=== PATIENT | female | born 1955 | race Caucasian/White ===

== ENCOUNTER 2018-06-01 09:45 | Emergency (ER) | payer BC ==
[2018-06-01] MEDS ORDERED: NA CHLORIDE 0.9% 1,000 ML ONE (10:30)
[2018-06-01] MEDS ORDERED: CEFTRIAXONE/SWI 1gm 1 GM/10 ML SYR ONE (10:30)
[2018-06-01] MEDS ORDERED: SMZ./TMP. 800/160 MG TABLET ONE (10:34)
[2018-06-01 10:50] LABS: Absolute Lymphocytes (CBC) 0.9 K/uL (0.7-4.9); Absolute Monocytes 0.4 K/uL (0.1-1.3); Absolute Neutrophil 6.7 K/uL (1.8-8.0); Basophils % 0.2 % (0-1.3); Eosinophils % 1.3 % (0-4.4); Hematocrit 40.5 % (36.0-45.0); Lymphocytes % 11.2 % (15.3-44.8); MCH 29.2 pg (27.0-35.0); MCV 85.6 fL (80-100); MPV 7.9 fL (7.6-11.3); RBC Red Blood Cell Count 4.73 M/uL (3.86-4.86)
--- NOTE | 2018-06-01 10:53 | RAD REPORT ---
EXAM DESCRIPTION: CT - Stone Protocol - 06/01/2018 10:34 am CLINICAL HISTORY: Abdominal pain. Dysuria/hematuria COMPARISON: None. TECHNIQUE: Computed axial tomography of the abdomen pelvis was obtained without oral or IV contrast. Lack of IV and oral contrast limits evaluation of solid organs, bowel, and vessels. Coronal reformat caleb images were obtained and reviewed. All CT scans are performed using dose optimization technique as appropriate and may include automated exposure control or mA/KV adjustment according to patient size. FINDINGS: Extrarenal pelves. A renal calculus is not seen. An ureteral calculus is not noted. A blad rae calculus is not present. The liver, spleen, pancreas and adrenals appear grossly normal There is no evidence of diverticulitis. The appendix appears normal An adnexal mass is not seen A small umbilical hernia IMPRESSION: Negative for a genitourinary calculus
[2018-06-01 11:35] LABS: Bilirubin Total 0.5 mg/dL (0.2-1.0); Protein, Total 7.1 g/dL (6.4-8.2)
--- NOTE | 2018-06-01 11:36 | EDPHYS ---
Physician Documentation [facility] Name: Sindhu Gaming Age: 62 yrs Sex: Female : 1955 Arrival Date: 06/01/2018 Time: 09:52 Bed 5 Private MD: Jerrod Ny ED Physician Flex Elizabeth HPI: 06/01 10:05 This 62 yrs old Female presents to ER via Unassigned with complaints of day Vaginal Bleeding. 10:05 The patient presents with urinary symptoms, dysuria, frequency, hematuria, hesitancy, day urgency. Onset: The symptoms/episode began/occurred this morning, today. Modifying factors: The symptoms are alleviated by nothing, the symptoms are aggravated by nothing. Associated signs and symptoms: The patient has no apparent associated signs or symptoms. Severity of symptoms: At their worst the symptoms were mild, in the emergency department the symptoms are unchanged. The patient is sexually active. The patient has not experienced similar symptoms in the past. Historical: - Allergies: 10:08 Codeine; sv 10:08 Levaquin; sv - Home Meds: 10:08 calcium [Active]; D3 [Active]; aspirin 81 mg Oral TbEC [Active]; Claritin Oral sv [Active]; valcyclovir [Active]; hydroxycloraquine [Active]; Magnesium Oxide Oral [Active]; - PSHx: 10:08 glaucoma; sv - Immunization history:: Flu vaccine is up to date. - Social history:: Smoking status: Patient/guardian denies using tobacco, Patient uses alcohol, but reports only rare drinking. - Family history:: not pertinent. - Ebola Screening: : No symptoms or risks identified at this time. ROS: 10:05 Constitutional: Negative for fever, chills, and weight loss, Eyes: Negative for injury, day pain, redness, and discharge, ENT: Negative for injury, pain, and discharge, Neck: Negative for injury, pain, and swelling, Cardiovascular: Negative for chest pain, palpitations, and edema, Respiratory: Negative for shortness of breath, cough, wheezing, and pleuritic chest pain, Back: Negative for injury and pain, : Negative for injury, bleeding, discharge, and swelling, MS/Extremity: Negative for injury and deformity, Skin: Negative for injury, rash, and discoloration, Neuro: Negative for headache, weakness, numbness, tingling, and seizure, Psych: Negative for depression, anxiety, suicide ideation, homicidal ideation, and hallucinations, Allergy/Immunology: Negative for hives, rash, and allergies, Endocrine: Negative for neck swelling, polydipsia, polyuria, polyphagia, and marked weight changes, Hematologic/Lymphatic: Negative for swollen nodes, abnormal bleeding, and unusual bruising. 10:05 Abdomen/GI: Positive for abdominal pain, of the suprapubic area. Exam: 10:05 Constitutional: This is a well developed, well nourished patient who is awake, alert, day and in no acute distress. Head/Face: Normocephalic, atraumatic. Eyes: Pupils equal round and reactive to light, extra-ocular motions intact. Lids and lashes normal. Conjunctiva and sclera are non-icteric and not injected. Cornea within normal limits. Periorbital areas with no swelling, redness, or edema. ENT: Nares patent. No nasal discharge, no septal abnormalities noted. Tympanic membranes are normal and external auditory canals are clear. Oropharynx with no redness, swelling, or masses, exudates, or evidence of obstruction, uvula midline. Mucous membranes moist. Neck: Trachea midline, no thyromegaly or masses palpated, and no cervical lymphadenopathy. Supple, full range of motion without nuchal rigidity, or vertebral point tenderness. No Meningismus. Chest/axilla: Normal chest wall appearance and motion. Nontender with no deformity. No lesions are appreciated. Cardiovascular: Regular rate and rhythm with a normal S1 and S2. No gallops, murmurs, or rubs. Normal PMI, no JVD. No pulse deficits. Respiratory: Lungs have equal breath sounds bilaterally, clear to auscultation and percussion. No rales, rhonchi or wheezes noted. No increased work of breathing, no retractions or nasal flaring. Back: No spinal tenderness. No costovertebral tenderness. Full range of motion. Skin: Warm, dry with normal turgor. Normal color with no rashes, no lesions, and no evidence of cellulitis. MS/ Extremity: Pulses equal, no cyanosis. Neurovascular intact. Full, normal range of motion. Neuro: Awake and alert, GCS 15, oriented to person, place, time, and situation. Cranial nerves II-XII grossly intact. Motor strength 5/5 in all extremities. Sensory grossly intact. Cerebellar exam normal. Normal gait. Psych: Awake, alert, with orientation to person, place and time. Behavior, mood, and affect are within normal limits. 10:05 Respiratory: 10:05 Abdomen/GI: Inspection: abdomen appears normal, Bowel sounds: normal, Palpation: mild abdominal tenderness, in the suprapubic area. Vital Signs: 10:08 BP 155 / 96; Pulse 67; Resp 18; Temp 98.3; Pulse Ox 100% ; Weight 83.91 kg; Height 5 sv ft. 5 in. (165.10 cm); Pain 0/10; 12:45 BP 145 / 78; Pulse 76; Resp 19; Pulse Ox 99% on R/A; aj 10:08 Body Mass Index 30.79 (83.91 kg, 165.10 cm) sv MDM: 09:59 Patient medically screened. [facility] 10:08 Data reviewed: vital signs, nurses notes, lab test result(s). [facility] 06/01 10:05 Order name: Urine Culture [facility] 06/01 10:13 Order name: CBC with Diff; Complete Time: 11:32 [facility] 06/01 10:13 Order name: Comprehensive Metabolic Panel; Complete Time: 11:36 [facility] 06/01 10:13 Order name: CT Stone Protocol; Complete Time: 11:32 [facility] 06/01 10:27 Order name: Urine Dipstick--Ancillary (enter results); Complete Time: 12:00 06/01 10:05 Order name: Urine Dipstick-Ancillary (obtain specimen); Complete Time: 10:25 [facility] Administered Medications: 10:39 Drug: NS 0.9% 1000 ml Route: IV; Rate: 1 bolus; Site: right antecubital; sv 10:39 Drug: Rocephin - (cefTRIAXone) 1 grams Route: IVPB; Infused Over: 30 mins; Site: right sv antecubital; 10:56 Drug: Bactrim (160 mg-800 mg (DS) 1 tablet Route: PO; sv 12:43 Follow up: Response: No adverse reaction aj 12:15 Drug: Macrobid 100 mg Route: PO; aj 12:43 Follow up: Response: No adverse reaction aj 12:15 Drug: Pyridium 200 mg Route: PO; aj 12:44 Follow up: Response: No adverse reaction aj Disposition: 06/01/18 11:35 Discharged to Home. Impression: Urinary tract infection, site not specified, Hematuria, Cystitis. - Condition is Stable. - Discharge Instructions: Dysuria, Hematuria, Adult, Urinary Tract Infection, Adult, Urinary Tract Infection, Adult, [id number]. - Prescriptions for Macrobid 100 mg Oral Capsule - take 1 capsule by ORAL route every 12 hours for 5 days; 10 capsule. Bactrim DS 800- 160 mg Oral Tablet - take 1 tablet by ORAL route every 12 hours for 7 days; 14 tablet. Pyridium 200 mg Oral Tablet - take 1 tablet by ORAL route every 8 hours for 3 days; 9 tablet. - Work release form, Medication Reconciliation Form, Thank You Letter, Antibiotic Education, Prescription Opioid Use form. - Follow up: Jerrod Ny; When: 2 - 3 days; Reason: Recheck today's complaints, Continuance of care, Re-evaluation by your physician. Follow up: Edwardo Shine; When: 2 - 3 days; Reason: Recheck today's complaints, Re-evaluation by your physician. - Problem is new. - Symptoms have improved. Signatures: Dispatcher [employer] Brigitte Mccrary RN RN sv Myers, Amanda, RN RN aj Anderson, Corey, MD MD day Corrections: (The following items were deleted from the chart) 12:46 11:35 06/01/2018 11:35 Discharged to Home. Impression: Urinary tract infection, site aj not specified; Hematuria; Cystitis. Condition is Stable. Discharge Instructions: Dysuria, Hematuria, Adult, Urinary Tract Infection, Adult, Urinary Tract Infection, Adult, [id number]. Prescriptions for Macrobid 100 mg Oral Capsule - take 1 capsule by ORAL route every 12 hours for 5 days; 10 capsule, Bactrim DS 800-160 mg Oral Tablet - take 1 tablet by ORAL route every 12 hours for 7 days; 14 tablet. and Forms are Medication Reconciliation Form, Thank You Letter, Antibiotic Education, Prescription Opioid Use. Follow up: Jerrod Ny; When: 2 - 3 days; Reason: Recheck today's complaints, Continuance of care, Re-evaluation by your physician. Follow up: Edwardo Shine; When: 2 - 3 days; Reason: Recheck today's complaints, Re-evaluation by your physician. Problem is new. Symptoms have improved. day
--- NOTE | 2018-06-01 11:36 | ER ---
Nurse's Notes [facility] Name: Sindhu Gaming Age: 62 yrs Sex: Female : 1955 Arrival Date: 06/01/2018 Time: 09:52 Bed 5 Private MD: Jerrod Ny Diagnosis: Urinary tract infection, site not specified;Hematuria;Cystitis Presentation: 06/01 09:56 Presenting complaint: Patient states: burning sensation when urinating and pink tinge sv urine with clots today. c/o pressure feeling. Transition of care: patient was not received from another setting of care. Onset of symptoms was June 01, 2018. Care prior to arrival: None. 09:56 Method Of Arrival: Ambulatory sv 09:56 Acuity: LAQUITA 3 sv 10:00 Risk Assessment: Do you want to hurt yourself or someone else? Patient reports no sv desire to harm self or others. Initial Sepsis Screen: Does the patient meet any 2 criteria? No. Patient's initial sepsis screen is negative. Does the patient have a suspected source of infection? Yes: Dysuria/Frequency/Urgency/UTI. Triage Assessment: 09:56 General: Appears in no apparent distress. uncomfortable, well developed, Behavior is sv calm, cooperative, appropriate for age. Pain: Denies pain. EENT: No signs and/or symptoms were reported regarding the EENT system. Neuro: Level of Consciousness is awake, alert, obeys commands, Oriented to person, place, time, situation, Moves all extremities. Full function Gait is steady, Speech is normal. Respiratory: Respiratory effort is even, unlabored, Respiratory pattern is regular, symmetrical. : Reports burning with urination, discharge, pink tinged urine this morning with clots urinary frequency. Derm: Skin is normal. Historical: - Allergies: 10:08 Codeine; sv 10:08 Levaquin; sv - Home Meds: 10:08 calcium [Active]; D3 [Active]; aspirin 81 mg Oral TbEC [Active]; Claritin Oral sv [Active]; valcyclovir [Active]; hydroxycloraquine [Active]; Magnesium Oxide Oral [Active]; - PSHx: 10:08 glaucoma; sv - Immunization history:: Flu vaccine is up to date. - Social history:: Smoking status: Patient/guardian denies using tobacco, Patient uses alcohol, but reports only rare drinking. - Family history:: not pertinent. - Ebola Screening: : No symptoms or risks identified at this time. Screenin:31 Abuse screen: Denies threats or abuse. Denies injuries from another. Nutritional sv screening: No deficits noted. Tuberculosis screening: No symptoms or risk factors identified. Fall Risk None identified. Assessment: 10:05 Reassessment: Patient appears in no apparent distress at this time. No changes from sv previously documented assessment. : Urine is fawad blood. 10:35 Reassessment: Patient appears in no apparent distress at this time. No changes from sv previously documented assessment. Patient and/or family updated on plan of care and expected duration. Pain level reassessed. Patient is alert, oriented x 3, equal unlabored respirations, skin warm/dry/pink. Pt given adolph crackers to snack on before taking Bactrim. 12:15 Reassessment: Patient appears in no apparent distress at this time. No changes from aj previously documented assessment. Patient and/or family updated on plan of care and expected duration. Pain level reassessed. Patient is alert, oriented x 3, equal unlabored respirations, skin warm/dry/pink. Given peanut butter and crackers with meds Patient denies pain at this time. Vital Signs: 10:08 BP 155 / 96; Pulse 67; Resp 18; Temp 98.3; Pulse Ox 100% ; Weight 83.91 kg; Height 5 sv ft. 5 in. (165.10 cm); Pain 0/10; 12:45 BP 145 / 78; Pulse 76; Resp 19; Pulse Ox 99% on R/A; aj 10:08 Body Mass Index 30.79 (83.91 kg, 165.10 cm) sv ED Course: 09:52 Patient arrived in ED. mr 09:53 Jerrod Ny MD is Private Physician. mr 09:58 Flex Elizabeth MD is Attending Physician. day 10:07 Triage completed. sv 10:09 Arm band placed on Patient placed in an exam room, on a stretcher. sv 10:24 Brigitte Rivers RN is Primary Nurse. sv 10:24 Urine collected: clean catch specimen, fawad blood. mh5 10:25 Patient has correct armband on for positive identification. Placed in gown. Bed in low mh5 position. Call light in reach. Side rails up X 1. Adult w/ patient. Warm blanket given. Pulse ox on. NIBP on. 10:25 Urine Culture Sent. [facility] 10:34 CT Stone Protocol In Process Unspecified. EDMS 10:35 CT completed. Patient tolerated procedure well. Patient moved back from CT. bq 10:35 Initial lab(s) drawn, by me, sent to lab. Inserted saline lock: 20 gauge in right sv antecubital area, using aseptic technique. Blood collected. Flushed right antecubital with 5 ml normal saline. 10:41 Awaiting lab results, Awaiting radiology results. sv 10:56 Report given to Jennifer LANCE. sv 11:33 Jerrod Ny MD is Referral Physician. day 11:33 Edwardo Shine MD is Referral Physician. day 12:44 No provider procedures requiring assistance completed. IV discontinued, intact, aj bleeding controlled, No redness/swelling at site. Pressure dressing applied. Administered Medications: 10:39 Drug: NS 0.9% 1000 ml Route: IV; Rate: 1 bolus; Site: right antecubital; sv 10:39 Drug: Rocephin - (cefTRIAXone) 1 grams Route: IVPB; Infused Over: 30 mins; Site: right sv antecubital; 10:56 Drug: Bactrim (160 mg-800 mg (DS) 1 tablet Route: PO; sv 12:43 Follow up: Response: No adverse reaction aj 12:15 Drug: Macrobid 100 mg Route: PO; aj 12:43 Follow up: Response: No adverse reaction aj 12:15 Drug: Pyridium 200 mg Route: PO; aj 12:44 Follow up: Response: No adverse reaction aj Outcome: 11:35 Discharge ordered by . day 12:45 Discharged to home ambulatory, with family. aj 12:45 Condition: good 12:45 Discharge instructions given to patient, Instructed on discharge instructions, follow up and referral plans. medication usage, Demonstrated understanding of instructions, follow-up care, medications, Prescriptions given X 3. 12:46 Patient left the ED. aj Addendum: 06/04/2018 07:37 Addendum: Culture Results: Positive urine culture. No further action required. Bacteria s s sensitive to prescribed antibiotic. Signatures: Dispatcher [employer] Brigitte Mccrary RN RN sv Myers, Amanda, RN RN aj Anderson, Corey, MD MD cha Rivera, Jessy mr Darius BibianaAnne-Marie Yeager, CASI RN Lorraine Damon [facility] Corrections: (The following items were deleted from the chart) 06/01 10:40 10:39 Rocephin - (cefTRIAXone) 1 grams IVPB in left antecubital over 30 mins sv sv 10:40 10:39 NS 0.9% 1000 ml IV at 1 bolus in left antecubital sv sv 10:42 10:35 Reassessment: Patient appears in no apparent distress at this time. No changes sv from previously documented assessment. Patient and/or family updated on plan of care and expected duration. Pain level reassessed. Patient is alert, oriented x 3, equal unlabored respirations, skin warm/dry/pink. sv
[2018-06-01 11:41] LABS: Urine Blood 3+ (NEG); Urine Glucose NEGATIVE (NEG); Urine Protein 3+ (NEG)
[2018-06-01] MEDS ORDERED: NITROFURAN MACRO 100 MG CAP PO ONE (12:21)
[2018-06-01] MEDS ORDERED: PHENAZOPYRIDINE 100MG TAB PO ONE (12:21)
== END 2018-06-01 12:46 | disposition home or self-care (01) ==
LOC: ER 09:45
DX: N39.0 Urinary tract infection, site not specified (principal); N30.90 Cystitis, unspecified without hematuria; Z79.82 Long term (current) use of aspirin; Z88.1 Allergy status to other antibiotic agents; Z88.5 Allergy status to narcotic agent
CPT/HCPCS: 36415; 74176; 76377; 80053; 81003; 85025; 87077; 87086; 87088; 87186; 96374; 99284; J0696; J7030